=== PATIENT | female | born 2000 | race Caucasian/White ===

== ENCOUNTER 2023-08-31 08:25 | Emergency (ER) | payer OTHER, SELFPAY ==
[2023-08-31 08:26] VITALS: BP 127/72; PULSE 88; RESP 16; TEMP 36.3; O2SAT 96; BMI 24.7
--- NOTE | 2023-08-31 08:41 | EDS_ITS ---
HPI History of Present Illness Chief Complaint: General Illness [facility] Medical History (Updated 08/31/23 @ 08:41 by Stephanie Greene) Seizure Home Medications levetiracetam 500 mg tablet (Keppra) 500 mg PO Q12H 08/31/23 [History Last Taken 08/31/23] Allergy/AdvReac Type Severity Reaction Status Date / Time No Known Allergies Allergy Verified 08/31/23 08:27 Surgical History no surgical history Social History Smoking Status: Never smoker EXAM Physical Exam Const Vital Signs: 08/31/23 08:26 08/31/23 08:39 Temperature 97.4 F L Temperature Source Temporal Pulse Rate 88 Respiratory Rate 16 Respiratory Effort Normal Non-Labored Respiratory Pattern Normal Blood Pressure 127/72 H Blood Pressure Mean 90 Pulse Ox 96 Oxygen Delivery Method Room Air MDM MDM MDM Narrative Medical decision making narrative: HISTORY OF PRESENT ILLNESS: 22-year-old female presents with feeling off. States she is 37 weeks . She further states she developed headache approximate 6:30 AM. It was gradual in onset. Similar to prior headaches. Notes she feels this way prior to having a seizure. States she has history of complex migraine and seizures. Last seizure was in July. States has been compliant with Keppra. Denies any illnesses. Denies any volume loss. Denies abdominal pain. Denies any vaginal bleeding passing tissue or leakage of fluid. She is a G1, P0. Denies any focal numbness or weakness. Patient denies sudden onset or thunderclap headache, denies maximal intensity within 1 minute, vomiting, neck pain, stiffness, changes in vision, fever, history malignancy, syncope, or seizures associated with headache. REVIEW OF SYSTEMS: Pertinent positives: Headache Pertinent negatives: Nausea, syncope, loss of movement or sensation PHYSICAL EXAM: Nursing triage notes reviewed, Vital signs reviewed Constitutional: please see mdm HENT: MMM Eyes: Pupils equal round and reactive to light, Extraocular muscles intact, visual youssef intact Neck: No stridor, no JVD, full neck ROM Lungs: Clear to auscultation, No wheezing or rales. No increased work of breathing, no conversational dyspnea, no accessory muscle use, no nasal flaring. No respiratory distress noted Heart: Regular rate and rhythm, No murmurs, No rubs and No gallops, 2+ distal pulses (radial, femoral, posterior tibial) in all extremities Abdomen: Soft, there is no tenderness, gravid uterus, rigidity, rebound or guarding, no obvious peritoneal signs, no palpable pulsatile abdominal masses, no auscultated abdominal bruit : No CVAT Extremities: No edema Neuro: Alert and oriented x3, neuro exam at baseline, cranial nerves II through XII are intact. No pain with extraocular muscle movement. There is negative test of skew. 5 of 5 strength in upper and lower extremities in flexion extension. Intact sensation to light touch in upper and lower extremity dermatomes. No truncal or extremity ataxia. No dysdiadochokinesia. Normal gait. 2+ reflexes in upper and lower extremities. No meningeal signs. Negative Babinski. NIH of 0. Skin: No rash or lesions noted MEDICAL DECISION MAKING: Chief Complaint: Feeling off External records reviewed: No recent ED visits or hospitalizations Factors affecting care: seizure disorder (on Keppra), complex migraine MDM Narrative: Patient was hemodynamically stable, afebrile, nontoxic-appearing. No focal neurologic deficits. I considered the following differential diagnosis: Cerebral vein thrombosis, ICH, complex migraine, electrolyte disturbance I obtained a broad lab and imaging workup to further elucidate etiology patient complaints. Treat the patient with empiric Ativan, oral Tylenol and 1 L normal saline bolus I obtained a urinalysis to rule out asymptomatic bacteriuria ALL IMAGES (IF OBTAINED) HAVE BEEN PERSONALLY REVIEWED AND INTERPRETED BY MYSELF. CT venogram showed no evidence of cerebral vein thrombosis, ICH or ischemia BMP without evidence of significant electrolyte abnormalities, no anion gap, no acute kidney injury. Noted mild hyponatremia CBC without leukocytosis but mild anemia noted urinalysis shows no evidence of urinary inflammation suggestive of UTI heart tones reassuring The synthesis of the patient's history, physical exam, labs images suggest no acute life-limiting etiology. Repeat neurologic exam remained intact and benign the patient is appropriate for discharge home. Will give work note, Tylenol instructions, close OB follow-up instructions. The patient and/or family, caregivers express understanding. The patient and/or family, caregivers agrees with the plan. Shared decision making: I will have a discussion with the patient and or visitors regarding risk/benefits of further testing or admission. They will be made aware of of the risk/benefits inherent in this decision they will be given the opportunity to voice understanding. Total critical care time today provided was at least 0 minutes. This excludes separately billable procedures. Critical care time (if documented) is secondary to the patient having high probability of clinically significant/life threatening deterioration in the patient's condition which required my urgent intervention. Impression: 1. Complex migraine 2. Third trimester 3. Hx of seizure Dispo: Discharge This note was generated with [employer] dictation software. It may contain incorrect words, spelling, and punctuation that were not noted in review of the chart prior to signing. Lab Data Labs: Laboratory Results - last 24 hr 08/31/23 08/31/23 09:00 09:05 WBC 10.6 RBC 3.86 L Hgb 11.8 L Hct 35.9 L MCV 93.0 MCH 30.6 MCHC 32.9 RDW Std Deviation 45.9 H RDW Coeff of Migel 13.7 Plt Count 314 MPV 11.0 Immature Gran % (Auto) 0.500 Neut % (Auto) 78.2 H Lymph % (Auto) 14.3 L [place] % (Auto) 6.1 Eos % (Auto) 0.7 Baso % (Auto) 0.2 Absolute Neuts (auto) 8.3 H Absolute Lymphs (auto) 1.51 Nucleated RBC % 0 Sodium 135 L Potassium 4.0 Chloride 108 H Carbon Dioxide 21.0 Anion Gap 6 BUN 10 Creatinine 0.58 Estim Creat Clear Calc 149.21 Est GFR (MDRD) Af Amer 169 Est GFR (MDRD) Non-Af 139 BUN/Creatinine Ratio 17.4 Glucose 97 Calcium 9.0 Urine Color Yellow Urine Clarity Clear Urine pH 6.5 Ur Specific [place] 1.010 Urine Protein Negative Urine Glucose (UA) Normal Urine Ketones Negative Urine Occult Blood Negative Urine Nitrite Negative Urine Bilirubin Negative Urine Urobilinogen Normal Ur Leukocyte Esterase 25 H Urine RBC 0 SEEN Urine WBC 0 SEEN Ur Squamous Epith Cells 10-25 SEEN Urine Bacteria 1+ Urine Mucus 0 SEEN Radiography Diagnostic Testing: Clinical Impression(s) from Imaging Studies Brain CT 08/31/23 08:54 IMPRESSION: Normal unenhanced and enhanced CT scan of the brain. Electronically Signed: Garland Anthony MD at 9:31 EDT , Discharge Plan Triage Chief Complaint: General Illness ED Provider: Doug Chesetr Dx/Rx/DC Orders Prescriptions: No Action levetiracetam [Keppra] 500 mg tablet 500 mg PO Q12H Stand Alone Forms: ED Work / School Excuse Activity Restrictions/Additional Instructions: Thank you for trusting us with your care today! Please take Tylenol (2 pills, 650 mg) every 6 hours as needed for pain and fever control. Please return to the emergency department if your symptoms change or worsen. Please follow with your primary care physician for further outpatient evaluation and management. Disposition Disposition: Home, Self Care
--- NOTE | 2023-08-31 08:54 | CT_ITS ---
STUDY: CT BRAIN WITH AND WITHOUT CONTRAST REASON FOR EXAM: Female, 22 years old. [place]. History of seizures. RADIATION DOSAGE (If Supplied By Facility): CTDIvol = ( 44.99 ) mGy, DLP = ( 1547.23 ) mGycm TECHNIQUE: Transaxial CT imaging of the brain was performed pre and post contrast administration. The examination was performed with intravenous administration of IV 50mL Isovue-370. Individualized dose optimization techniques were used for this CT. COMPARISON: None. FINDINGS: Normal soft tissue structures. Normal calvarium. Normal size ventricles and extra-axial spaces for the patient''s age. Normal white matter tracts of the cerebral hemispheres. Normal basal ganglia and thalami. Normal brainstem. Normal cerebellum. There is no intracranial hemorrhage. There are no findings of an acute ischemic infarction. Normal visualized paranasal sinuses. CT/Brain/Head W/WO Contrast IMPRESSION: Normal unenhanced and enhanced CT scan of the brain. Electronically Signed: Garland Anthony MD at 9:31 EDT ,
[2023-08-31] MEDS: LORazepam 2 MG/ML Syringe 1 MG IV (09:06)
[2023-08-31] MEDS: 0.9% Normal Saline (1000mL) 1,000 ML 999 ML IV (09:08)
[2023-08-31] MEDS: Acetaminophen 325 MG Tablet PO (09:08)
[2023-08-31 09:15] LABS: Mucous, Urine 0 SEEN /hpf (<or=2+); Red Blood Cells-Urine 0 SEEN /hpf (0-5); White Blood Cells 0 SEEN /hpf (0-5)
[2023-08-31 09:16] LABS: Absolute Lymphocyte Count 1.51 X10^3/uL (0.83-4.51); Absolute Neutrophil Count 8.3 X10^3/uL (2.0-7.7); Basophil# 0.02 X10^3/uL; Basophil% 0.2 % (0-1); Eosinophil# 0.07 X10^3/uL; Eosinophils% 0.7 % (0-5); Hematocrit 35.9 % (37-47); Hemoglobin 11.8 g/dL (12.0-15.0); Lymphocyte # 1.51 X10^3/ul (0.83-4.51); Lymphocyte % 14.3 % (19-41); Mean Corp Hgb Conc 32.9 g/dL (32-36); Mean Corpuscular Hgb 30.6 pg (27.0-32.0); Monocyte# 0.65 X10^3/uL; Monocyte% 6.1 % (0-10); NRBC Flagged by Analyzer 0 % (0-5); Neutrophil # 8.29 X10^3/uL (2.7-7.7); Neutrophil % 78.2 % (47-70); Platelet Count 314 K/mm3 (150-450); RBC Distribution Width CV 13.7 % (11.6-14.6); RBC Distribution Width SD 45.9 fl (35.1-43.9); Red Blood Count 3.86 M/mm3 (4.2-5.4); White Blood Count 10.6 K/mm3 (4.4-11.0)
[2023-08-31 09:16] LABS: Color, Urine Yellow (Yellow); Glucose, Dipstick Normal (Normal); Ketone-Dipstick Negative (Negative); Leukocyte Esterase-Dipstick 25 /ul (Negative); Nitrite-Dipstick Negative (Negative); Occult Blood-Urine Negative /ul (Negative); Protein-Dipstick Negative (Negative); Urine Bilirubin Dipstick Negative (Negative); Urine Clarity Clear (Clear); Urine Urobilinogen Normal (Normal); Urine pH 6.5 (5.0 - 8.0)
[2023-08-31 09:22] LABS: Bacteria 1+ /hpf (None Seen); Squamous Epithelial Cells - UA 10-25 SEEN /hpf (5-10)
[2023-08-31 09:25] LABS: Anion Gap 6 (5-15); BUN 10 mg/dL (7-18); BUN/Creat Ratio 17.4 RATIO (10-20); Chloride 108 mmol/L (98-107); Creatinine, Serum 0.58 mg/dL (0.55-1.02); EST Glomerular Filtration Rate 139 mL/min (>60); Est Glom Filt Rate - Afr Amer 169 mL/min (>60); Estimated Creatinine Clearance 149.21 ml/min; Glucose 97 mg/dL (74-106); Sodium Level 135 mmol/L (136-145)
[2023-08-31 10:12] VITALS: BP 118/81; PULSE 83; RESP 16; TEMP 36.6; O2SAT 100
== END 2023-08-31 10:17 | disposition home or self-care (01) ==
PROVIDERS: Emergency Provider Emergency Medicine; PCP Family Medicine; Visit Provider Emergency Medicine
DX: O99.353 Diseases of the nervous system complicating pregnancy, third trimester (principal); G40.909 Epilepsy, unspecified, not intractable, without status epilepticus; O99.013 Anemia complicating pregnancy, third trimester; Z79.899 Other long term (current) drug therapy; Z3A.37 37 weeks gestation of pregnancy; E87.1 Hypo-osmolality and hyponatremia; G43.109 Migraine with aura, not intractable, without status migrainosus; O99.283 Endocrine, nutritional and metabolic diseases complicating pregnancy, third trimester
CPT/HCPCS: 70470; 80048; 81001; 85025; 96361; 96374; 99282; J7030; Q9967; A4216